=== PATIENT | female | born 1990 | race Caucasian/White ===

== ENCOUNTER → 2020-04-29 09:05 | Outpatient (CLI) | payer OTHER, SELFPAY ==
[2020-04-29 08:18] VITALS: BMI 36.2
[2020-04-29 10:22] LABS: Prolactin 12.7 ng/mL; Thyroid Stim Hormone (TSH) 1.94 uIU/mL (0.358-3.74)
[2020-04-29 10:25] LABS: Hemoglobin A1c 5.4 % (3.8-5.6)
== END ==
PROVIDERS: Referring Provider Obstetrics & Gynecology; Visit Provider Obstetrics & Gynecology
DX: N92.6 Irregular menstruation, unspecified (principal); E28.2 Polycystic ovarian syndrome
CPT/HCPCS: 36415; 82627; 83036; 84146; 84403; 84443; 82626

== ENCOUNTER 2020-05-12 11:28 | Day surgery (SDC) | payer OTHER, SELFPAY ==
[2020-04-29 08:18] VITALS: BMI 36.2
[2020-05-06 12:21] VITALS: BMI 35.7
--- NOTE | 2020-05-11 16:09 | PCM.HPOB.BLA ---
- Problem List (1) Endometrial polyp Status: Acute History and Physical Date of Admission: 05/12/20 Intake Vital Signs 05/06/20 Height 5 ft 11 in 05/06/20 Weight: 256 lb 2 oz 05/06/20 BP 128/90 H Intake Visit Reasons: D&C Social Media Marketer Required: No Is patient in pain?: No Allergies azithromycin Adverse Reaction (Unknown, Verified 05/06/20 12:21) nausea and vomiting nickel Adverse Reaction (Unknown, Verified 05/06/20 12:21) unknown Medications aspirin 81 mg tablet,delayed release 81 mg PO DAILY 04/29/20 [History Confirmed 05/06/20] cholecalciferol (vitamin D3) 50 mcg (2,000 unit) capsule 50 mcg PO DAILY 04/29/20 [History Confirmed 05/06/20] loratadine-pseudoephedrine ER 10 mg-240 mg tablet,extended [id number] 1 tab PO DAILY 04/29/20 [History Confirmed 05/06/20] metformin 500 mg tablet 500 mg PO BID 04/29/20 [History Confirmed 05/06/20] Post menopausal: No Patient : No : No PFSH Medical History (Updated 05/06/20 @ 12:21 by Anjana Nix) Factor V deficiency (Chronic) COVID-19 (Acute) Surgical History [place] teeth extracted (Resolved) Family History Father Hypertension Grandfather Hypertension Diabetes Grandmother Breast cancer Mother Heart disease Social History (Updated 05/06/20 @ 13:[address] Anuja Peterson MD) Smoking Status: Never smoker alcohol intake: current details: occasionally substance use type: does not use caffeine: Yes what type of physical activity do you participate in: bicycling frequency: 1-2 times per week seatbelt use: always do you feel safe at home: Yes additional social history: -Eleno HPI D&C: Details: KENNEDY MARIE is a 29 year old who presents for pre-op visit for hysteroscopy, D&C, polypectomy, possible symphion Pregancy History 0 Elective abortions Hx Para Spontaneous abortions Hx # Term Pregnancies Ectopic pregnancies Hx # Pregnancies Multiple births # of living children ROS Const Constitutional: Reports system reviewed and no additional complaints, except as docu; denies chills or fever(s) Eyes Eyes: Reports system reviewed and no additional complaints, except as docu ENT ENT: Reports system reviewed and no additional complaints, except as docu Cardio Card: Reports system reviewed and no additional complaints, except as docu; denies chest pain, leg swelling or rapid, pounding, or irregular heartbeat Resp Resp: Reports system reviewed and no additional complaints, except as docu; denies dyspnea GI GI: Reports system reviewed and no additional complaints, except as docu; denies constipation, nausea or vomiting : Reports system reviewed and no additional complaints, except as docu; denies painful urination, pelvic pain, urinary frequency, urinary hesitancy, urinary urgency, vaginal discharge, vaginal odor or vaginal itching Musc Musc: Reports system reviewed and no additional complaints, except as docu Skin Skin/Breast: Reports system reviewed and no additional complaints, except as docu Neuro Neuro: Reports system reviewed and no additional complaints, except as docu Psych Psych: Reports system reviewed and no additional complaints, except as docu Endo Endo: Reports system reviewed and no additional complaints, except as docu Exam Const General: cooperative, healthy appearing, comfortable, well developed, well groomed Neck Neck: normal visual inspection, full ROM Resp Effort & Inspection: normal respiratory effort, able to speak in complete sentences, symmetric chest movement Cardio Rate: regular rate Skin General: no rashes or lesions noted, elasticity normal, turgor normal Lesions: no lesions Rashes: no rashes Neuro General: alert, awake, oriented x3 Cranial Nerves: CN's II-XI intact bilaterally, PERRL, EOM intact bilaterally Cognition: normal cognition Speech: speech normal Gait: normal gait Extrem General: normal to inspection, full ROM, no pedal edema Psych Appearance: grossly normal Mental Status: mental status grossly normal Mood: congruent mood Affect: normal affect Speech and Movement: speech and movement normal Attitude: cooperative Thought Process: normal Thought Content: normal Assessment & Plan 1. Uterine polyp N84.0 Plan Presents for pre-op visit for hysteroscopy, D&C, polypectomy, possible symphion Consent again reviewed with patient. Patient aware of risks including bleeding, infection, and visceral or vascular injury Denies changes in medical history ROS negative Consent for procedure signed in the office. Reviewed expectations for day of surgery and post-op precautions. Surgery packet given to patient. UPDATE- I have seen the patient and performed any clinically relevant updates to the history and physical exam. Anuja Peterson MD
[2020-05-12] VITALS (9 sets, daily range): BP systolic 117–135; BP diastolic 72–87; PULSE 80–87; RESP 16–18; TEMP 36–36.5; O2SAT 97–100; BMI 35.5
[2020-05-12 12:07] LABS: Internal QC Validated? YES +Cl - CLEAR BKGD
[2020-05-12 12:08] LABS: Pregnancy, Urine Negative Negative
[2020-05-12] MEDS: Lactated Ringers 1,000 ML 100 ML IV ×2 (12:21→15:07)
[2020-05-12 12:33] LABS: Hematocrit 39.9 % (37-47); Hemoglobin 13.5 g/dL (12.0-15.0); Mean Corp Hgb Conc 33.8 g/dL (32-36); Mean Corpuscular Hgb 28.8 pg (27.0-32.0); Mean Corpuscular Volume 85.3 fL (81-99); Mean Platelet Vol. 10.5 fl (6.2-12.0); Platelet Count 223 K/mm3 (150-450); RBC Distribution Width CV 13.2 % (11.6-14.6); RBC Distribution Width SD 40.5 fl (35.1-43.9); Red Blood Count 4.68 M/mm3 (4.2-5.4); White Blood Count 6.8 K/mm3 (4.4-11.0)
[2020-05-12 12:44] LABS: Cholesterol 171 mg/dL (200); High Density Lipoprotein 35 mg/dL; Triglycerides 175 mg/dL; Very Low Density Lipoprotein 35 mg/dL (5-40)
--- NOTE | 2020-05-12 13:00 | EMB_PTH ---
PATIENT: KENNEDY MARIE LOC: [facility] [place] U#:[id number] AGE/SX: 29/F ROOM: RE05/12/[address]: Dr. Anuja Peterson MD : 1990 BED: DIS: 05/12/2020 SPEC #: [id number] RECD: 05/13/20 07:09 STATUS: MALATHI BELÉN #: [id number] ALBERTA: 05/12/20 13:[address]: Anuja Peterson DEPT: SURGICAL PATHOLOGY RECD BY: Fernanda Cheatham ENTERED: 05/13/20 13:19 SP TYPE: ENDOM BX/C AKUA DR: No Primary Care Phys Tissues: Endometrium, NOS Procedures: Surgery Specimen Level IV HEADER OPERATION: Hysteroscopy, D & C, polypectomy PRE-OP DIAGNOSIS: Uterine polyp TISSUE SUBMITTED: Endometrial curettings and polyp MICROSCOPIC DIAGNOSIS Endometrial polyp and curetting: Polypoid fragments of endometrium with simple hyperplasia without atypia. AM:manolo 05/14/2020 COMMENT Case has been reviewed in consultation with Dr. Johnson who concurs with the above diagnosis. IDC:SJ MICROSCOPIC DESCRIPTION Slides are reviewed. GROSS DESCRIPTION Received in fixative is one container labeled with the patient's name and designated endometrial curettings and polyp. The specimen consists of multiple irregular fragments of red-ojeda soft tissue that in aggregate measure 5 x 3 x 0.2 cm. The specimen is totally submitted in two cassettes. / AM:manolo 05/13/20 TC:5 CPT: 91989
--- NOTE | 2020-05-12 14:17 | DCINST_ITS ---
Discharge Diet: No Restrictions Discharge Activity: Return to Normal Activity, May Shower, May Take a Tub Bath - in 2 weeks. Allergies/Adverse Reactions: Allergies azithromycin Adverse Reaction (Unknown, Verified 05/06/20 14:14) nausea and vomiting nickel Adverse Reaction (Unknown, Verified 05/06/20 14:14) unknown Medications to take at Discharge aspirin 81 mg tablet,delayed release 81 mg PO DAILY 04/29/20 cholecalciferol (vitamin D3) 50 mcg (2,000 unit) capsule 50 mcg PO DAILY 04/29/20 loratadine-pseudoephedrine ER 10 mg-240 mg tablet,extended [id number] 1 tab PO DAILY 04/29/20 metformin 500 mg tablet 500 mg PO BID 04/29/20 Amox/Clavulanate Tablet [Augmentin Tablet] 875 mg PO Q12H 05/06/20 Ibuprofen [Motrin] 600 mg PO Q6H PRN PRN #30 tab 05/12/20 The following prescriptions were given: Ibuprofen [Motrin] 600 mg PO Q6H PRN PRN #30 tab PRN Reason: Pain Transmission Status: Pending to [id number] Primary Care Physician: Care Physician,No Primary [Primary Care Provider] - Test Results: Test results from this visit will be discussed in further detail at your follow- up appointment, if applicable.
--- NOTE | 2020-05-12 17:50 | OP.PCM_ITS ---
Problem List (1) Endometrial polyp Status: Acute Report of Operation Date of Procedure: 05/12/20 Pre-Operative Diagnosis: Suspected endometrial polyps Post-Operative Diagnosis: Endometrial polyps Surgery/Procedure Performed:: Hysteroscopy, D&C, polypectomy Description of Surgical Findings:: Endometrial polyps present with proliferative appearing endometrium nutrition program instructor: None Type of Anesthesia:: MAC Specimen's removed: EMC and polyp Estimated Blood Loss (mL): 20 cc Description of Procedure: The patient was taken to the operating room where general anesthesia was obtained without difficulty. She was prepped and draped in the dorsolithotomy position with yellowfin stirrups. Weighted speculum was placed in the posterior aspect of the vagina and the anterior lip of the cervix was grasped with a single-tooth tenaculum. The cervix was sequentially dilated to accommodate the hysteroscope. The hysteroscope was then introduced into the uterine cavity and the above findings were noted. Forceps were used to grasp and remove multiple endometrial polyps. Sharp curettage was then performed and adequate tissue was obtained. Hemostasis was noted. The procedure was deemed complete. All instruments were then removed from the vagina. The patient was again from anesthesia and taken to the recovery room in stable condition. - Complications None apparent - Admit VTE Documentation VTE Present on Admission: No VTE Mechan Device Prophylaxis: SCD's VTE Pharm Prophylaxis ordered?: No Multi Select Codes - Urinary/Genital Urinary/Genital CPT Codes: 92380 Hysteroscopy,EMC, Polypectomy
== END 2020-05-12 16:10 | disposition home or self-care (01) ==
LOC: SDC 11:31 → AC 11:32
PROVIDERS: Anesthesiology; Referring Provider Obstetrics & Gynecology; Visit Provider Obstetrics & Gynecology
PROC: 0UB98ZZ Excision of Uterus, Via Natural or Artificial Opening Endoscopic (ICD-10-PCS; CPT 58558; principal; 2020-05-12 12:45)
DX: N85.01 Benign endometrial hyperplasia (principal); Z79.899 Other long term (current) drug therapy; Z79.82 Long term (current) use of aspirin; D68.51 Activated protein C resistance
CPT/HCPCS: 00952; 58558; 80061; 81025; 85027; 86850; 86900; 86901; 88305; J7120; J2405

== ENCOUNTER → 2021-02-19 12:31 | Outpatient (CLI) | payer OTHER, SELFPAY ==
--- NOTE | 2021-02-19 12:40 | US_ITS ---
STUDY: ULTRASOUND OF THE FEMALE PELVIS - COMPLETE REASON FOR EXAM: Female, 30 years old. AUB LMP: 01/29/2021 TECHNIQUE: Transabdominal and Transvaginal TECHNICAL QUALITY: Adequate. COMPARISON: None. FINDINGS: The uterus is anteverted and is in a midline position. The uterus measures 7.7 x 4.6 x 3.3 cm. Normal uterine cervix. The endometrium measures 8.4 mm in thickness, and is heterogeneous (striated). There is no demonstrated endometrial mass. There is no demonstrated myometrial mass. I.U.D. - The patient does not have an I.U.D. The right ovary is visualized. The right ovary measures 3.1 x 2.7 x 3.3 cm. There is no right ovarian cyst or ovarian mass. There is no visualized right adnexal mass or complex lesion. There is normal arterial and normal venous vascularity. The left ovary is visualized. The left ovary measures 4.3 x 2.5 x 2.2 cm. There is a simple 3 cm cyst. There is no visualized left adnexal mass or complex lesion. There is normal arterial and normal venous vascularity. There is no fluid in the cul-de-sac. The bladder is sonographically normal US/Pelvic (Non ) IMPRESSION: No suspicious sonographic findings, simple left ovarian cyst, no specific follow-up needed Electronically Signed: Nick Hodgson MD at 14:10 EST , Service support ,
--- NOTE | 2021-02-19 12:40 | US_ITS ---
STUDY: ULTRASOUND OF THE FEMALE PELVIS - COMPLETE REASON FOR EXAM: Female, 30 years old. AUB LMP: 01/29/2021 TECHNIQUE: Transabdominal and Transvaginal TECHNICAL QUALITY: Adequate. COMPARISON: None. FINDINGS: The uterus is anteverted and is in a midline position. The uterus measures 7.7 x 4.6 x 3.3 cm. Normal uterine cervix. The endometrium measures 8.4 mm in thickness, and is heterogeneous (striated). There is no demonstrated endometrial mass. There is no demonstrated myometrial mass. I.U.D. - The patient does not have an I.U.D. The right ovary is visualized. The right ovary measures 3.1 x 2.7 x 3.3 cm. There is no right ovarian cyst or ovarian mass. There is no visualized right adnexal mass or complex lesion. There is normal arterial and normal venous vascularity. The left ovary is visualized. The left ovary measures 4.3 x 2.5 x 2.2 cm. There is a simple 3 cm cyst. There is no visualized left adnexal mass or complex lesion. There is normal arterial and normal venous vascularity. There is no fluid in the cul-de-sac. The bladder is sonographically normal US/Transvaginal Non- IMPRESSION: No suspicious sonographic findings, simple left ovarian cyst, no specific follow-up needed Electronically Signed: Nick Hodgson MD at 14:10 EST , Service support ,
== END ==
PROVIDERS: Referring Provider Obstetrics & Gynecology; Visit Provider Obstetrics & Gynecology
DX: N93.9 Abnormal uterine and vaginal bleeding, unspecified (principal)
CPT/HCPCS: 76830; 76856

== ENCOUNTER → 2021-03-29 11:41 | Outpatient (CLI) | payer OTHER, SELFPAY ==
[2021-03-29 12:01] LABS: Absolute Lymphocyte Count 2.22 X10^3/uL (0.83-4.51); Absolute Neutrophil Count 5.8 X10^3/uL (2.0-7.7); Basophil# 0.05 X10^3/uL; Basophil% 0.6 % (0-1); Eosinophil# 0.14 X10^3/uL; Eosinophils% 1.6 % (0-5); Hematocrit 39.9 % (37-47); Hemoglobin 13.9 g/dL (12.0-15.0); Lymphocyte # 2.22 X10^3/ul (0.83-4.51); Lymphocyte % 25.8 % (19-41); Mean Corp Hgb Conc 34.8 g/dL (32-36); Mean Corpuscular Hgb 29.1 pg (27.0-32.0); Mean Corpuscular Volume 83.6 fL (81-99); Mean Platelet Vol. 10.4 fl (6.2-12.0); Monocyte# 0.39 X10^3/uL; Monocyte% 4.5 % (0-10); NRBC Flagged by Analyzer 0 % (0-5); Neutrophil # 5.79 X10^3/uL (2.7-7.7); Neutrophil % 67.3 % (47-70); Platelet Count 277 K/mm3 (150-450); RBC Distribution Width CV 12.9 % (11.6-14.6); RBC Distribution Width SD 39.1 fl (35.1-43.9); Red Blood Count 4.77 M/mm3 (4.2-5.4); White Blood Count 8.6 K/mm3 (4.4-11.0)
[2021-03-29 12:10] LABS: hCG Titer Quant., Serum < 1 mIU/mL (1-3)
== END ==
PROVIDERS: Referring Provider Obstetrics & Gynecology; Visit Provider Obstetrics & Gynecology
DX: Z34.90 Encounter for supervision of normal pregnancy, unspecified, unspecified trimester (principal); N93.9 Abnormal uterine and vaginal bleeding, unspecified
CPT/HCPCS: 36415; 84702; 85025

== ENCOUNTER 2021-07-16 12:07 | Outpatient (CLI) | payer OTHER, SELFPAY ==
--- NOTE | 2021-07-16 12:20 | RAD_ITS ---
STUDY: HYSTEROSALPINGOGRAM. REASON FOR EXAM: Female, 31 years old. Infertility FLUOROSCOPY TIME (if supplied): ( 50 seconds ) minutes/seconds. 2 images were obtained. TECHNIQUE: A hysterosalpingogram was performed by the attending sample selector. Imaging was provided. COMPARISON: None. FINDINGS: There is evidence of a prominent uterine septation making with an arcuate uterus. Both fallopian tubes are patent with free spill. There is dilatation of the right fallopian tube. RAD/Salpingogram IMPRESSION: Arcuate uterus. Bilateral patency of the fallopian tubes with dilatation of the right fallopian tube. Electronically Signed: Giovani Christopher MD at 13:12 EDT ,
--- NOTE | 2021-07-16 13:00 | OP.PCM_ITS ---
Problems Associated Problem List Diagnoses (1) Infertility: (2) H/O dilation and curettage: (3) Uterus, arcuate: (4) Abnormal finding present on diagnostic imaging of uterus: Operative Report Preop diagnosis: Infertility Postop diagnosis: Same plus bilateral tubal patency, arcuate uterus, dilated fallopian tubes Procedure: Hysterosalpingogram Surgeon: Sangeetha Dobbs Implantable devices: None Complications: None Findings: Bilateral tubal patency and arcuate uterus, dilated fallopian tubes Operative details: Patient was taken to the x-ray room and was placed on the x- ray table and was in the dorsal lithotomy position. Speculum was placed in the vagina and the cervix prepped with Betadine and the HSG catheter was easily introduced into the uterus and speculum removed. Radiologist was brought in and while pushing radiopaque dye into the uterus via the HSG catheter the radiologist took multiple images and views and confirmed bilateral tubal patency seen along with other abnormalities present see operative findings. All instruments removed from the vagina and the uterus without complication. Patient tolerated the procedure well. doxycycline course will be given due to tubal dilation, discussed fu in office planned and may consider inferitlity specialist referral. Multi Select Codes Urinary/Genital Urinary/Genital CPT Codes: 41630 HSG/SIS
== END 2021-07-16 23:59 | disposition home or self-care (01) ==
PROVIDERS: Referring Provider Obstetrics & Gynecology; Visit Provider Obstetrics & Gynecology
DX: N97.9 Female infertility, unspecified (principal); E28.2 Polycystic ovarian syndrome
CPT/HCPCS: 58340; 74740; Q9967

== ENCOUNTER → 2025-02-06 | Outpatient (CLI) | payer OTHER, SELFPAY ==
[2025-02-06 15:54] LABS: Hematocrit 37.0 % (37-47); Hemoglobin 13.0 g/dL (12.0-15.0); Immature Granulocytes Count 0.100 X10^3/uL (0.0-0.0); Mean Corp Hgb Conc 35.1 g/dL (32-36); Mean Corpuscular Volume 84.7 fL (81-99); Mean Platelet Vol. 10.3 fl (6.2-12.0); NRBC Flagged by Analyzer 0 % (0-5); Platelet Count 271 K/mm3 (150-450); RBC Distribution Width CV 13.6 % (11.6-14.6); RBC Distribution Width SD 42.4 fl (35.1-43.9); Red Blood Count 4.37 M/mm3 (4.2-5.4); White Blood Count 11.5 K/mm3 (4.4-11.0)
[2025-02-06 16:36] LABS: HIV Nonreactive (Nonreactive); Hepatitis B Surface Antigen Nonreactive (Nonreactive); Hepatitis C Antibody Nonreactive (Nonreactive); Syphilis Antibodies Nonreactive (Nonreactive)
[2025-02-10 22:07] LABS: Chlamydia By Nucleic Acid AMP Negative (Negative); Gonococcus By Nucleic Acid AMP Negative (Negative)
== END | disposition home or self-care (01) ==
PROVIDERS: Obstetrics & Gynecology; Visit Provider Advanced Practice Midwife
DX: O09.90 Supervision of high risk pregnancy, unspecified, unspecified trimester (principal); O99.280 Endocrine, nutritional and metabolic diseases complicating pregnancy, unspecified trimester; O99.210 Obesity complicating pregnancy, unspecified trimester; E03.9 Hypothyroidism, unspecified; Z3A.00 Weeks of gestation of pregnancy not specified
CPT/HCPCS: 36415; 83021; 83036; 84439; 84443; 85025; 85660; 86703; 86762; 86780; 86803; 86850; 86870; 86900; 86901; 87086; 87088; 87340; 87491; 87591

== ENCOUNTER → 2025-04-01 | Outpatient (CLI) | payer OTHER, SELFPAY | END | disposition home or self-care (01) | PROVIDERS: Referring Provider Advanced Practice Midwife; Visit Provider Advanced Practice Midwife | DX: O09.90 Supervision of high risk pregnancy, unspecified, unspecified trimester (principal); Z3A.00 Weeks of gestation of pregnancy not specified | CPT/HCPCS: 36415; 84439; 84443 ==